=== PATIENT | female | born 1965 | race Caucasian/White ===

== ENCOUNTER 2021-10-28 17:38 | Emergency (ER) | payer OTHER ==
[2021-10-28 20:22] LABS: BILIRUBIN NEGATIVE (NEGATIVE); BLOOD NEGATIVE Ery/uL (NEGATIVE); CLARITY CLEAR (CLEAR); COLOR YELLOW (YELLOW); GLUCOSE (U) 3+ mg/dL (NORMAL); LEUKOCYTES NEGATIVE Leu/uL (NEGATIVE); NITRITE NEGATIVE (NEGATIVE); PROTEIN NEGATIVE (NEGATIVE); SPECIFIC GRAVITY <=1.005 (1.001-1.030); UROBILINOGEN 0.2 mg/dL (0.2-1.0)
[2021-10-28 21:03] LABS: BASOPHIL 0.2 % (0-2); EOSINOPHIL 0.7 % (0-5); HCT 45.4 % (37.0-47.0); LYMPHOCYTE 21.7 % (15-48); MCH 29.8 pg (25.0-31.0); MCV 90.3 fL (78.0-100.0); MONOCYTE 5.7 % (0-12); MPV 9.6 fL (6.0-9.5); NEUTROPHIL 71.2 % (41-80); NRBC 0; PLT 234 K/uL (150-400); RBC 5.03 M/uL (4.20-5.40); RDW 13.5 % (11.5-14.0); WBC 10.3 K/uL (4.0-10.5)
[2021-10-28 21:21] LABS: ALBUMIN 3.6 g/dL (3.4-5.0); BILIRUBIN - TOTAL 0.5 mg/dL (0.2-1.0); BUN/CREAT RATIO (CALC) 16.9 RATIO; CREATININE 0.65 mg/dL (0.51-0.95); GLOBULIN (CALCULATION) 3.4 g/dL; POTASSIUM 3.9 mmol/L (3.5-5.1)
[2021-10-28] MEDS ORDERED: BENTYL10 MG PO (22:53)
[2021-10-28] MEDS ORDERED: ONDANSETRON ODT4 MG PO (22:53)
== END 2021-10-28 23:09 | disposition home or self-care (01) ==
LOC: FER 17:38
PROVIDERS: Physician Assistant Medical
DX: K80.50 Calculus of bile duct without cholangitis or cholecystitis without obstruction (principal); E11.40 Type 2 diabetes mellitus with diabetic neuropathy, unspecified; J45.909 Unspecified asthma, uncomplicated; Z88.1 Allergy status to other antibiotic agents; Z88.5 Allergy status to narcotic agent; Z88.8 Allergy status to other drugs, medicaments and biological substances
CPT/HCPCS: 36415; 80053; 81003; 83690; 85025; C9113; J1885; J2405